=== PATIENT | female | born 1995 | race Caucasian/White ===

== ENCOUNTER → 2017-03-03 | Outpatient (CLI) | payer OTHER ==
[~2017-03-03] MED LIST: COLACE 100MG C100 MG PO
== END ==
LOC: EXRD 10:31
DX: M25.561 Pain in right knee (principal); M25.562 Pain in left knee
CPT/HCPCS: 73560

== ENCOUNTER 2022-07-18 21:03 | Emergency (ER) | payer OTHER ==
[2022-07-19] MEDS ORDERED: CEPHALEXIN500 MG PO (01:21)
== END 2022-07-19 02:34 | disposition home or self-care (01) ==
LOC: ER1 21:03
DX: L02.214 Cutaneous abscess of groin (principal); F17.200 Nicotine dependence, unspecified, uncomplicated
CPT/HCPCS: 10060; 99283